=== PATIENT | female | born 1940 | race Two or more races ===

== ENCOUNTER 2018-04-12 12:41 | Emergency (ER) | payer MEDICARE, OTHER ==
[2018-04-12 12:52] VITALS: BP 125/81; PULSE 108; RESP 20; TEMP 98.2
[2018-04-12] MEDS ORDERED: KETOROLAC 30 MG/ML 1 ML VIAL IVP STA (14:04)
--- NOTE | 2018-04-12 14:06 | ED ---
General Adult HPI - General Chief complaint: Skin/Abscess/Foreign Body Stated complaint: lt sided chest/side pain, rash Time Seen by Provider: 04/12/18 13:00 Source: patient, RN notes reviewed Mode of arrival: ambulatory Limitations: no limitations - History of Present Illness Initial comments: This is a 78-year-old female who presents emergency Department complaining of left-sided flank pain and left-sided chest pain. Patient states it started 7 days ago. Patient states been constant for 7 days. Patient went to see the primary medical care doctor on Wednesday and since then the pain is continued. Patient states the rash broke out yesterday. Patient denies any difficulty breathing or shortness of breath. Patient denies any diaphoretic episodes. Patient denies any nausea. Patient denies abdominal pain other than with rashes. Patient denies any headache patient denies numbness weakness. Patient denies any lightheadedness dizziness or near-syncopal episode. - Related Data Home Medications Medication Instructions Recorded Confirmed Glimepiride [Amaryl] 2 mg PO [id number] 04/12/18 04/12/18 Ibuprofen [Motrin] 600 mg PO Q6H PRN 04/12/18 04/12/18 Lisinopril-Hctz 20-12.5 mg 1 tab PO DAILY 04/12/18 04/12/18 [Zestoretic 20-12.5] Simvastatin [Zocor] 20 mg PO HS 04/12/18 04/12/18 Previous Rx's Medication Instructions Recorded valACYclovir HCL [Valacyclovir] 1,000 mg PO Q8H 7 Days tab 04/12/18 Allergies Allergy/AdvReac Type Severity Reaction Status Date / Time No Known Allergies Allergy Verified 04/12/18 14:19 Review of Systems ROS Statement: Those systems with pertinent positive or pertinent negative responses have been documented in the HPI. ROS Other: All systems not noted in ROS Statement are negative. Past Medical History Past Medical History: Diabetes Mellitus, Hyperlipidemia, Hypertension History of Any Multi-Drug Resistant Organisms: None Reported Additional Past Surgical History / Comment(s): skin cancer removal Past Psychological History: No Psychological Hx Reported Smoking Status: Never smoker Past Alcohol Use History: None Reported Past Drug Use History: None Reported General Exam - General Exam Comments Initial Comments: GENERAL: Patient is well-developed and well-nourished. Patient is nontoxic and well- hydrated and is in mild distress. ENT: Neck is soft and supple. No significant lymphadenopathy is noted. Oropharynx is clear. Moist mucous membranes. Neck has full range of motion without eliciting any pain. EYES: The sclera were anicteric and conjunctiva were pink and moist. Extraocular movements were intact and pupils were equal round and reactive to light. Eyelids were unremarkable. PULMONARY: Unlabored respirations. Good breath sounds bilaterally. No audible rales rhonchi or wheezing was noted. CARDIOVASCULAR: There is a regular rate and rhythm without any murmurs gallops or rubs. ABDOMEN: Soft and nontender with normal bowel sounds. No palpable organomegaly was noted. There is no palpable pulsatile mass. SKIN: There is a classic shingles type rash. Left flank to the anterior abdomen. NEUROLOGIC: Patient is alert and oriented x3. Cranial nerves II through XII are grossly intact. Motor and sensory are also intact. Normal speech, volume and content. Symmetrical smile. MUSCULOSKELETAL: Normal extremities with adequate strength and full range of motion. LYMPHATICS: No significant lymphadenopathy is noted PSYCHIATRIC: Normal psychiatric evaluation. Limitations: no limitations Course Vital Signs 04/12/18 12:47 Temperature 98.2 F Pulse Rate 108 H Respiratory 20 Rate Blood Pressure 125/81 O2 Sat by Pulse 96 Oximetry Medical Decision Making - Medical Decision Making EKG shows normal sinus rhythm at 95 bpm LA interval is 212 QRS is under QT interval 380 QTC is 477. Patient's EKG shows no ST segment elevation or depression or T wave abnormalities are noted. 2. Chest shows no acute normalities. Patient was given valacyclovir emergency department will be sent home with similar. - Lab Data Result diagrams: 04/12/18 14:30 04/12/18 14:30 Lab Results 04/12/18 04/12/18 04/12/18 Range/Units 14:30 14:30 14:30 WBC 3.8 (3.8-10.6) k/uL RBC 4.22 (3.80-5.40) m/uL Hgb 13.4 (11.4-16.0) gm/dL Hct 40.9 (34.0-46.0) % MCV 96.7 (80.0-100.0) fL MCH 31.8 (25.0-35.0) pg MCHC 32.9 (31.0-37.0) g/dL RDW 12.3 (11.5-15.5) % Plt Count 167 (150-450) k/uL Neutrophils % 56 % Lymphocytes % 27 % Monocytes % 8 % Eosinophils % 1 % Basophils % 1 % Neutrophils # 2.2 (1.3-7.7) k/uL Lymphocytes # 1.1 (1.0-4.8) k/uL Monocytes # 0.3 (0-1.0) k/uL Eosinophils # 0.1 (0-0.7) k/uL Basophils # 0.0 (0-0.2) k/uL PT (9.0-12.0) sec INR (<1.2) APTT (22.0-30.0) sec Sodium 135 L (137-145) mmol/L Potassium 4.3 (3.5-5.1) mmol/L Chloride 96 L (98-107) mmol/L Carbon Dioxide 28 (22-30) mmol/L Anion Gap 11 mmol/L BUN 21 H (7-17) mg/dL Creatinine 1.10 H (0.52-1.04) mg/dL Est GFR (CKD-EPI)AfAm 56 (>60 ml/min/1.73 sqM) Est GFR (CKD-EPI)NonAf 49 (>60 ml/min/1.73 sqM) Glucose 126 H (74-99) mg/dL Calcium 9.9 (8.4-10.2) mg/dL Magnesium 1.8 (1.6-2.3) mg/dL Total Bilirubin 0.5 (0.2-1.3) mg/dL AST 38 H (14-36) U/L ALT 35 (9-52) U/L Alkaline Phosphatase 52 (38-126) U/L Total Creatine Kinase 93 (30-135) U/L CK-MB (CK-2) 1.4 (0.0-2.4) ng/mL CK-MB (CK-2) Rel Index 1.5 Troponin I <0.012 (0.000-0.034) ng/mL Total Protein 8.5 H (6.3-8.2) g/dL Albumin 4.7 (3.5-5.0) g/dL 04/12/18 Range/Units 14:30 WBC (3.8-10.6) k/uL RBC (3.80-5.40) m/uL Hgb (11.4-16.0) gm/dL Hct (34.0-46.0) % MCV (80.0-100.0) fL MCH (25.0-35.0) pg MCHC (31.0-37.0) g/dL RDW (11.5-15.5) % Plt Count (150-450) k/uL Neutrophils % % Lymphocytes % % Monocytes % % Eosinophils % % Basophils % % Neutrophils # (1.3-7.7) k/uL Lymphocytes # (1.0-4.8) k/uL Monocytes # (0-1.0) k/uL Eosinophils # (0-0.7) k/uL Basophils # (0-0.2) k/uL PT 9.7 (9.0-12.0) sec INR 1.0 (<1.2) APTT 21.9 L (22.0-30.0) sec Sodium (137-145) mmol/L Potassium (3.5-5.1) mmol/L Chloride (98-107) mmol/L Carbon Dioxide (22-30) mmol/L Anion Gap mmol/L BUN (7-17) mg/dL Creatinine (0.52-1.04) mg/dL Est GFR (CKD-EPI)AfAm (>60 ml/min/1.73 sqM) Est GFR (CKD-EPI)NonAf (>60 ml/min/1.73 sqM) Glucose (74-99) mg/dL Calcium (8.4-10.2) mg/dL Magnesium (1.6-2.3) mg/dL Total Bilirubin (0.2-1.3) mg/dL AST (14-36) U/L ALT (9-52) U/L Alkaline Phosphatase (38-126) U/L Total Creatine Kinase (30-135) U/L CK-MB (CK-2) (0.0-2.4) ng/mL CK-MB (CK-2) Rel Index Troponin I (0.000-0.034) ng/mL Total Protein (6.3-8.2) g/dL Albumin (3.5-5.0) g/dL Disposition Clinical Impression: Herpes zoster Disposition: HOME SELF-CARE Condition: Good Instructions: Shingles (ED) Prescriptions: valACYclovir HCL [Valacyclovir] 1,000 mg PO Q8H 7 Days tab Is patient prescribed a controlled substance at d/c from ED?: No Referrals: Nonstaff,Physician [Primary Care Provider] - 1-2 days Time of Disposition: 15:53
[2018-04-12 15:00] LABS: Basophils % (A) 1 %; Eosinophils # (A) 0.1 k/uL (0-0.7); Eosinophils % (A) 1 %; HCT 40.9 % (34.0-46.0); HGB 13.4 gm/dL (11.4-16.0); Lymphocytes # (A) 1.1 k/uL (1.0-4.8); Lymphocytes % (A) 27 %; MCH 31.8 pg (25.0-35.0); MCHC 32.9 g/dL (31.0-37.0); MCV 96.7 fL (80.0-100.0); Monocytes # (A) 0.3 k/uL (0-1.0); Monocytes % (A) 8 %; Neutrophils # (A) 2.2 k/uL (1.3-7.7); Neutrophils % (A) 56 %; Platelet Count 167 k/uL (150-450); RBC 4.22 m/uL (3.80-5.40); RDW 12.3 % (11.5-15.5); WBC 3.8 k/uL (3.8-10.6)
[2018-04-12 15:05] LABS: Albumin 4.7 g/dL (3.5-5.0); Calcium 9.9 mg/dL (8.4-10.2); Magnesium 1.8 mg/dL (1.6-2.3); Potassium 4.3 mmol/L (3.5-5.1); Total Bilirubin 0.5 mg/dL (0.2-1.3); Total Protein 8.5 g/dL (6.3-8.2)
--- NOTE | 2018-04-12 15:09 | XR ---
EXAMINATION TYPE: XR chest 2V DATE OF EXAM: 04/12/2018 COMPARISON: Prior chest x-ray unavailable HISTORY: Chest pain TECHNIQUE: Frontal and lateral views of the chest are obtained. FINDINGS: There is no focal air space opacity, pleural effusion, or pneumothorax seen. The cardiac silhouette size is within normal limits. Calcification in the left upper lobe likely represents gra nuloma. Patient is rotated. There is eventration of the right hemidiaphragm. Aorta is dense. Degenera tive disc changes in the visualized spine. The osseous structures are intact. IMPRESSION: No acute cardiopulmonary process.
[2018-04-12 15:16] LABS: Partial Thromboplastin Time 21.9 sec (22.0-30.0); Prothrombin Time 9.7 sec (9.0-12.0)
[2018-04-12 15:17] LABS: Creatine Kinase 93 U/L (30-135)
[2018-04-12 15:30] LABS: Creatine Kinase MB 1.4 ng/mL (0.0-2.4); Troponin I <0.012 ng/mL (0.000-0.034)
[2018-04-12] MEDS ORDERED: valACYclovir 500 MG TAB PO STA (15:52)
[2018-04-12 16:17] LABS: Appearance,Urine Cloudy (Clear); Bacteria,Urine Occasional /hpf; Bilirubin,Urine Negative (Negative); Blood,Urine Negative (Negative); Color,Urine Light Yellow; Glucose,Urine (UA) Negative (Negative); Hyaline Casts,Urine 3 /lpf (0-2); Ketones,Urine Negative (Negative); Leukocyte Esterase,Urine Moderate (Negative); Mucus,Urine Rare /hpf; Nitrite,Urine Negative (Negative); Protein,Urine Negative (Negative); RBC,Urine 1 /hpf (0-5); Specific Gravity,Urine 1.011 (1.001-1.035); Squamous Epithelial Cell,Urine <1 /hpf (0-4); Urobilinogen,Urine <2.0 mg/dL (<2.0); WBC,Urine 22 /hpf (0-5)
== END 2018-04-12 16:34 | disposition home or self-care (01) ==
LOC: EC 12:41
DX: B02.9 Zoster without complications (principal); R07.9 Chest pain, unspecified; R10.9 Unspecified abdominal pain; E11.9 Type 2 diabetes mellitus without complications; E78.5 Hyperlipidemia, unspecified; I10 Essential (primary) hypertension; Z85.828 Personal history of other malignant neoplasm of skin; Z79.84 Long term (current) use of oral hypoglycemic drugs; Z79.899 Other long term (current) drug therapy
CPT/HCPCS: 36415; 93005; 80053; 82550; 82553; 83735; 84484; 85025; 85610; 85730; 81001; 71046; 99285; 96374; J1885

== ENCOUNTER → 2018-11-05 | Outpatient (CLI) | payer MEDICARE, OTHER ==
--- NOTE | 2018-11-05 18:42 | MR ---
EXAMINATION TYPE: MR knee RT wo con DATE OF EXAM: 11/05/2018 COMPARISON: None HISTORY: Meniscus tear / Pain Rt knee TECHNIQUE: Multiplanar, multisequence imaging of the right knee is performed without IV contrast. FINDINGS: The anterior and posterior cruciate ligaments show no complete tear. There is a small focus of increa sed signal in the anterior cruciate ligament near the attachment on the tibia consistent with a parti al tear. Posterior cruciate ligament is intact. There is a moderate sized knee joint effusion. The lateral meniscus appears intact. There is narrowing of the medial joint space with significant thinning of the medial meniscus. There could be previous meniscal surgery. The collateral ligaments are intact. I see no focal bone destruction. There is no evidence of a fract ure. Patella is intact. IMPRESSION: Moderate size knee joint effusion. Extensive abnormality of the medial meniscus could reflect previou s surgery. If this patient has had no surgery then there is significant degenerative change and compl ex multiple tears of the medial meniscus. Moderate narrowing of the medial joint space. No fracture. Partial tear of the anterior cruciate ligament.
== END | disposition home or self-care (01) ==
LOC: RADMRIMAIN 13:47
PROVIDERS: ATTEND Orthopaedic Surgery
DX: S83.511A Sprain of anterior cruciate ligament of right knee, initial encounter (principal); M25.861 Other specified joint disorders, right knee

== ENCOUNTER 2019-05-15 18:26 | Observation (INO) | payer MEDICARE, OTHER ==
--- NOTE | 2019-05-15 19:00 | ED ---
General Adult HPI - General Chief complaint: Chest Pain Stated complaint: chest pain, UTI Time Seen by Provider: 05/15/19 18:30 Source: patient Mode of arrival: ambulatory Limitations: no limitations - History of Present Illness Initial comments: The patient is a 79-year-old female who presents to the emergency room and accompanied by her daughter. The patient is hard of hearing and is mildly confused therefore daughter provides the history. She states that her mother recently moved to the area so that way she could be closer to her and she could assist with her care. She reports that she does have some issues with memory which have acutely gotten worse twice in the past due to urinary tract infections. Daughter reports that since Wednesday the patient has had more confusion with hallucinations. She had thoughts that someone was in her apart ment and therefore hid her money. She has been very forgetful and has had some confused speech. She was going to take her into the doctor's for evaluation of urinary tract infection. The patient began complaining of chest pain over the left side of her chest and this is what prompted the daughter to bring her in sooner. She states that she lives in an independent facility. The patient denies hitting her head however daughter is not convinced of this. Denies any recent medication changes. She is also complaining of some belly pain and had an episode of vomiting on Wednesday. No fevers or chills. Patient denies any shortness of breath. No cardiac history. Denies any current abdominal pain. Does report black stools. No history of GI bleeding. Denies dysuria, hematuria or difficulty voiding. Denies a psychiatric history. Remainder of the HPI is limited because the patient's current state - Related Data Home Medications Medication Instructions Recorded Confirmed Aspirin EC [Ecotrin Low Dose] 81 mg PO DAILY 05/15/19 05/15/19 Previous Rx's Medication Instructions Recorded ALPRAZolam [Xanax] 0.25 mg PO BID PRN 7 Days #15 tab 05/17/19 Donepezil [Aricept] 5 mg PO HS #30 tab 05/17/19 Losartan Potassium [Cozaar] 100 mg PO DAILY #30 tab 05/17/19 Allergies Allergy/AdvReac Type Severity Reaction Status Date / Time No Known Allergies Allergy Verified 05/15/19 20:44 Review of Systems ROS Statement: Those systems with pertinent positive or pertinent negative responses have been documented in the HPI. ROS Other: All systems not noted in ROS Statement are negative. Past Medical History Past Medical History: Diabetes Mellitus, Hyperlipidemia, Hypertension History of Any Multi-Drug Resistant Organisms: None Reported Additional Past Surgical History / Comment(s): skin cancer removal Past Psychological History: No Psychological Hx Reported Smoking Status: Never smoker Past Alcohol Use History: None Reported Past Drug Use History: None Reported - Past Family History Family Family Medical History: No Reported History General Exam Limitations: no limitations General appearance: alert, in no apparent distress Head exam: Present: atraumatic, normocephalic, normal inspection Eye exam: Present: normal appearance, PERRL, EOMI. Absent: scleral icterus, conjunctival injection, periorbital swelling ENT exam: Present: normal exam, mucous membranes moist Neck exam: Present: normal inspection. Absent: tenderness, meningismus, lymphadenopathy Respiratory exam: Present: normal lung sounds bilaterally. Absent: respiratory distress, wheezes, rales, rhonchi, stridor Cardiovascular Exam: Present: regular rate, normal rhythm, normal heart sounds. Absent: systolic murmur, diastolic murmur, rubs, gallop, clicks GI/Abdominal exam: Present: soft, normal bowel sounds. Absent: distended, tenderness, guarding, rebound, rigid Extremities exam: Present: normal inspection, full ROM, normal capillary refill. Absent: tenderness, pedal edema, joint swelling, calf tenderness Back exam: Present: normal inspection Neurological exam: Present: alert, CN II-XII intact Psychiatric exam: Present: normal affect, normal mood Skin exam: Present: warm, dry, intact, normal color. Absent: rash Course Vital Signs 05/15/19 05/15/19 05/15/19 18:28 18:54 19:00 Temperature 97.9 F Pulse Rate 65 Pulse Rate [ 61 Right Pulse Oximetery] Respiratory 18 18 Rate Blood Pressure 176/83 O2 Sat by Pulse 99 Oximetry 05/15/19 05/15/19 05/15/19 19:22 19:54 21:00 Temperature 98.8 F 98.7 F 98.8 F Pulse Rate 68 62 71 Pulse Rate [ Right Pulse Oximetery] Respiratory 17 18 15 Rate Blood Pressure 188/94 167/84 170/85 O2 Sat by Pulse 98 99 100 Oximetry EKG Findings - EKG Comments: EKG Findings:: EKG demonstrates a sinus rhythm with a first-degree AV block. Rate of 62. LA interval 228. QRS 106. QTC of 454. No acute ST segment elevations or depressions concerning for ischemic changes. Baseline artifact. Medical Decision Making - Medical Decision Making Upon arrival the patient was placed into room 1. A thorough history and physical exam was performed. A 12-lead EKG was performed which demonstrates no acute findings. Peripheral IV is established. I did recommend laboratory studies which were grossly unremarkable. Sodium is 130 with a chloride of 90. Troponin is negative. Salicylate 4.5. Fecal occult is negative. CT the patient's brain demonstrates cerebral atrophy and chronic small vessel ischemia. No acute intracranial abnormality. Chest x-ray demonstrates no active cardiopulmonary disease. Urinalysis is clear. He did results with the patient and her doctor at bedside. As the patient does live alone and is suffering from acute confusion I did recommend hospital admission. I discussed the case with Dr. Andrade who accepted admission for the patient. I will place neurology on consult. The patient remained in stable condition and was transported to the floor - Lab Data Result diagrams: 05/17/19 05:58 05/17/19 05:58 Lab Results 05/15/19 05/15/19 05/15/19 Range/Units 18:50 18:53 18:53 WBC 4.5 (3.8-10.6) k/uL RBC 4.30 (3.80-5.40) m/uL Hgb 14.0 (11.4-16.0) gm/dL Hct 39.8 (34.0-46.0) % MCV 92.7 (80.0-100.0) fL MCH 32.5 (25.0-35.0) pg MCHC 35.1 (31.0-37.0) g/dL RDW 12.1 (11.5-15.5) % Plt Count 211 (150-450) k/uL Neutrophils % (Manual) 36 % Lymphocytes % (Manual) 57 % Monocytes % (Manual) 4 % Eosinophils % (Manual) 2 % Basophils % (Manual) 1 % Neutrophils # (Manual) 1.62 (1.3-7.7) k/uL Lymphocytes # (Manual) 2.57 (1.0-4.8) k/uL Monocytes # (Manual) 0.18 (0-1.0) k/uL Eosinophils # (Manual) 0.09 (0-0.7) k/uL Basophils # (Manual) 0.05 (0-0.2) k/uL Nucleated RBCs 0 (0-0) /100 WBC Manual Slide Review Performed RBC Morphology Normal PT (9.0-12.0) sec INR (<1.2) APTT (22.0-30.0) sec Sodium (137-145) mmol/L Potassium (3.5-5.1) mmol/L Chloride (98-107) mmol/L Carbon Dioxide (22-30) mmol/L Anion Gap mmol/L BUN (7-17) mg/dL Creatinine (0.52-1.04) mg/dL Est GFR (CKD-EPI)AfAm (>60 ml/min/1.73 sqM) Est GFR (CKD-EPI)NonAf (>60 ml/min/1.73 sqM) Glucose (74-99) mg/dL POC Glucose (mg/dL) (75-99) mg/dL POC Glu Staple Cutter ID Calcium (8.4-10.2) mg/dL Total Bilirubin (0.2-1.3) mg/dL AST (14-36) U/L ALT (4-34) U/L Alkaline Phosphatase (38-126) U/L Ammonia <9 (<30) umol/L Creatine Kinase (30-135) U/L Troponin I (0.000-0.034) ng/mL Total Protein (6.3-8.2) g/dL Albumin (3.5-5.0) g/dL TSH (0.465-4.680) mIU/L Urine Color Light Yellow Urine Appearance Clear (Clear) Urine pH 7.0 (5.0-8.0) Ur Specific [place] 1.007 (1.001-1.035) Urine Protein Negative (Negative) Urine Glucose (UA) Negative (Negative) Urine Ketones Negative (Negative) Urine Blood Negative (Negative) Urine Nitrite Negative (Negative) Urine Bilirubin Negative (Negative) Urine Urobilinogen <2.0 (<2.0) mg/dL Ur Leukocyte Esterase Negative (Negative) Stool Occult Blood (Negative) Salicylates mg/dL Urine Opiates Screen Not Detected (NotDetected) Ur Oxycodone Screen Not Detected (NotDetected) Urine Methadone Screen Not Detected (NotDetected) Ur Propoxyphene Screen Not Detected (NotDetected) Acetaminophen ug/mL Ur Barbiturates Screen Not Detected (NotDetected) U Tricyclic Antidepress Not Detected (NotDetected) Ur Phencyclidine Scrn Not Detected (NotDetected) Ur Amphetamines Screen Not Detected (NotDetected) U Methamphetamines Scrn Not Detected (NotDetected) U Benzodiazepines Scrn Not Detected (NotDetected) Urine Cocaine Screen Not Detected (NotDetected) U Marijuana (THC) Screen Not Detected (NotDetected) 05/15/19 05/15/19 05/15/19 Range/Units 18:53 18:53 18:53 WBC (3.8-10.6) k/uL RBC (3.80-5.40) m/uL Hgb (11.4-16.0) gm/dL Hct (34.0-46.0) % MCV (80.0-100.0) fL MCH (25.0-35.0) pg MCHC (31.0-37.0) g/dL RDW (11.5-15.5) % Plt Count (150-450) k/uL Neutrophils % (Manual) % Lymphocytes % (Manual) % Monocytes % (Manual) % Eosinophils % (Manual) % Basophils % (Manual) % Neutrophils # (Manual) (1.3-7.7) k/uL Lymphocytes # (Manual) (1.0-4.8) k/uL Monocytes # (Manual) (0-1.0) k/uL Eosinophils # (Manual) (0-0.7) k/uL Basophils # (Manual) (0-0.2) k/uL Nucleated RBCs (0-0) /100 WBC Manual Slide Review RBC Morphology PT 9.8 (9.0-12.0) sec INR 0.9 (<1.2) APTT 22.6 (22.0-30.0) sec Sodium 130 L (137-145) mmol/L Potassium 4.0 (3.5-5.1) mmol/L Chloride 90 L (98-107) mmol/L Carbon Dioxide 28 (22-30) mmol/L Anion Gap 12 mmol/L BUN 15 (7-17) mg/dL Creatinine 0.74 (0.52-1.04) mg/dL Est GFR (CKD-EPI)AfAm >90 (>60 ml/min/1.73 sqM) Est GFR (CKD-EPI)NonAf 78 (>60 ml/min/1.73 sqM) Glucose 124 H (74-99) mg/dL POC Glucose (mg/dL) (75-99) mg/dL POC Glu Staple Cutter ID Calcium 9.7 (8.4-10.2) mg/dL Total Bilirubin 0.5 (0.2-1.3) mg/dL AST 26 (14-36) U/L ALT 22 (4-34) U/L Alkaline Phosphatase 59 (38-126) U/L Ammonia (<30) umol/L Creatine Kinase 60 (30-135) U/L Troponin I <0.012 (0.000-0.034) ng/mL Total Protein 8.2 (6.3-8.2) g/dL Albumin 4.7 (3.5-5.0) g/dL TSH 0.894 (0.465-4.680) mIU/L Urine Color Urine Appearance (Clear) Urine pH (5.0-8.0) Ur Specific [place] (1.001-1.035) Urine Protein (Negative) Urine Glucose (UA) (Negative) Urine Ketones (Negative) Urine Blood (Negative) Urine Nitrite (Negative) Urine Bilirubin (Negative) Urine Urobilinogen (<2.0) mg/dL Ur Leukocyte Esterase (Negative) Stool Occult Blood (Negative) Salicylates 4.5 mg/dL Urine Opiates Screen (NotDetected) Ur Oxycodone Screen (NotDetected) Urine Methadone Screen (NotDetected) Ur Propoxyphene Screen (NotDetected) Acetaminophen <10.0 ug/mL Ur Barbiturates Screen (NotDetected) U Tricyclic Antidepress (NotDetected) Ur Phencyclidine Scrn (NotDetected) Ur Amphetamines Screen (NotDetected) U Methamphetamines Scrn (NotDetected) U Benzodiazepines Scrn (NotDetected) Urine Cocaine Screen (NotDetected) U Marijuana (THC) Screen (NotDetected) 05/15/19 05/15/19 Range/Units 19:00 19:15 WBC (3.8-10.6) k/uL RBC (3.80-5.40) m/uL Hgb (11.4-16.0) gm/dL Hct (34.0-46.0) % MCV (80.0-100.0) fL MCH (25.0-35.0) pg MCHC (31.0-37.0) g/dL RDW (11.5-15.5) % Plt Count (150-450) k/uL Neutrophils % (Manual) % Lymphocytes % (Manual) % Monocytes % (Manual) % Eosinophils % (Manual) % Basophils % (Manual) % Neutrophils # (Manual) (1.3-7.7) k/uL Lymphocytes # (Manual) (1.0-4.8) k/uL Monocytes # (Manual) (0-1.0) k/uL Eosinophils # (Manual) (0-0.7) k/uL Basophils # (Manual) (0-0.2) k/uL Nucleated RBCs (0-0) /100 WBC Manual Slide Review RBC Morphology PT (9.0-12.0) sec INR (<1.2) APTT (22.0-30.0) sec Sodium (137-145) mmol/L Potassium (3.5-5.1) mmol/L Chloride (98-107) mmol/L Carbon Dioxide (22-30) mmol/L Anion Gap mmol/L BUN (7-17) mg/dL Creatinine (0.52-1.04) mg/dL Est GFR (CKD-EPI)AfAm (>60 ml/min/1.73 sqM) Est GFR (CKD-EPI)NonAf (>60 ml/min/1.73 sqM) Glucose (74-99) mg/dL POC Glucose (mg/dL) 115 H (75-99) mg/dL POC Glu Staple Cutter ID [place] Calcium (8.4-10.2) mg/dL Total Bilirubin (0.2-1.3) mg/dL AST (14-36) U/L ALT (4-34) U/L Alkaline Phosphatase (38-126) U/L Ammonia (<30) umol/L Creatine Kinase (30-135) U/L Troponin I (0.000-0.034) ng/mL Total Protein (6.3-8.2) g/dL Albumin (3.5-5.0) g/dL TSH (0.465-4.680) mIU/L Urine Color Urine Appearance (Clear) Urine pH (5.0-8.0) Ur Specific [place]mer (1.001-1.035) Urine Protein (Negative) Urine Glucose (UA) (Negative) Urine Ketones (Negative) Urine Blood (Negative) Urine Nitrite (Negative) Urine Bilirubin (Negative) Urine Urobilinogen (<2.0) mg/dL Ur Leukocyte Esterase (Negative) Stool Occult Blood Negative (Negative) Salicylates mg/dL Urine Opiates Screen (NotDetected) Ur Oxycodone Screen (NotDetected) Urine Methadone Screen (NotDetected) Ur Propoxyphene Screen (NotDetected) Acetaminophen ug/mL Ur Barbiturates Screen (NotDetected) U Tricyclic Antidepress (NotDetected) Ur Phencyclidine Scrn (NotDetected) Ur Amphetamines Screen (NotDetected) U Methamphetamines Scrn (NotDetected) U Benzodiazepines Scrn (NotDetected) Urine Cocaine Screen (NotDetected) U Marijuana (THC) Screen (NotDetected) Disposition Clinical Impression: Chest pain, Acute encephalopathy Disposition: [facility] Condition: Stable Is patient prescribed a controlled substance at d/c from ED?: No Decision to Admit Reason: Admit from EC Decision Date: 05/15/19 Decision Time: 20:55
[2019-05-15 19:17] LABS: Glucose,Whole Blood 115 mg/dL (75-99)
[2019-05-15 19:37] LABS: INR 0.9 (<1.2); Partial Thromboplastin Time 22.6 sec (22.0-30.0); Prothrombin Time 9.8 sec (9.0-12.0)
[2019-05-15 19:38] LABS: Appearance,Urine Clear (Clear); Bilirubin,Urine Negative (Negative); Blood,Urine Negative (Negative); Color,Urine Light Yellow; Glucose,Urine (UA) Negative (Negative); Ketones,Urine Negative (Negative); Leukocyte Esterase,Urine Negative (Negative); Nitrite,Urine Negative (Negative); Protein,Urine Negative (Negative); Specific Gravity,Urine 1.007 (1.001-1.035); Urobilinogen,Urine <2.0 mg/dL (<2.0)
--- NOTE | 2019-05-15 19:39 | CT ---
EXAMINATION TYPE: CT brain wo con DATE OF EXAM: 05/15/2019 COMPARISON: None HISTORY: confusion, ams CT DLP: 1095.4 mGycm Automated exposure control for dose reduction was used. There is cerebral cortical atrophy. There is no mass effect nor midline shift. There is no sign of in tracranial hemorrhage. Calvarium is intact. There is mild hypodensity in the periventricular white ma tter. Skull base is intact. There is incomplete pneumatization of the mastoid sinuses. IMPRESSION: Cerebral atrophy and chronic small vessel ischemia. No acute intracranial abnormality. 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
[2019-05-15 19:40] LABS: ALT 22 U/L (4-34); AST 26 U/L (14-36); Acetaminophen <10.0 ug/mL; African American GFR (CKD) >90 (>60 ml/min/1.73 sqM); Albumin 4.7 g/dL (3.5-5.0); Alkaline Phosphatase 59 U/L (38-126); Anion Gap 12 mmol/L; Blood Urea Nitrogen 15 mg/dL (7-17); Calcium 9.7 mg/dL (8.4-10.2); Carbon Dioxide 28 mmol/L (22-30); Chloride 90 mmol/L (98-107); Creatine Kinase 60 U/L (30-135); Glucose 124 mg/dL (74-99); Non-African American GFR(CKD) 78 (>60 ml/min/1.73 sqM); Salicylate 4.5 mg/dL; Sodium 130 mmol/L (137-145); Total Bilirubin 0.5 mg/dL (0.2-1.3); Total Protein 8.2 g/dL (6.3-8.2)
--- NOTE | 2019-05-15 19:40 | XR ---
EXAMINATION TYPE: XR chest 2V DATE OF EXAM: 05/15/2019 COMPARISON: 04/12/2018 HISTORY: Altered mental status TECHNIQUE: 2 views FINDINGS: There is no heart failure nor confluent pneumonic infiltrate. Costophrenic angles are clear . Facet aorta is atheromatous. There are chest leads. Diaphragm is normal. There is osteopenia. IMPRESSION: No active cardiopulmonary disease. Normal heart. No change.
[2019-05-15 19:49] LABS: Amphetamine Screen,Urine Not Detected (NotDetected); Barbiturate Screen,Urine Not Detected (NotDetected); Benzodiazepines Screen,Urine Not Detected (NotDetected); Cocaine Screen,Urine Not Detected (NotDetected); Methadone Screen, Urine Not Detected (NotDetected); Opiate Screen,Urine Not Detected (NotDetected); Oxycodone Screen, Urine Not Detected (NotDetected); Phencyclidine Screen,Urine Not Detected (NotDetected); Tricyclic Antidepressant,Urine Not Detected (NotDetected); Urn Cannabinoid Scrn Not Detected (NotDetected)
[2019-05-15 19:57] LABS: HCT 39.8 % (34.0-46.0); MCH 32.5 pg (25.0-35.0); MCHC 35.1 g/dL (31.0-37.0); MCV 92.7 fL (80.0-100.0); Mean Platelet Volume 7.3; Platelet Count 211 k/uL (150-450); RDW 12.1 % (11.5-15.5); WBC 4.5 k/uL (3.8-10.6)
[2019-05-15 20:43] LABS: Basophils # (M) 0.05 k/uL (0-0.2); Eosinophils # (M) 0.09 k/uL (0-0.7); Lymphocytes # (M) 2.57 k/uL (1.0-4.8); Monocytes # (M) 0.18 k/uL (0-1.0); Neutrophils # (M) 1.62 k/uL (1.3-7.7); Neutrophils % (M) 36 %; Nucleated Red Blood Cells 0 /100 WBC (0-0); Total Cells Counted 100
[2019-05-15] MEDS ORDERED: NALOXONE 0.4 MG/ML 1 ML VIAL IV PRN (20:55)
[2019-05-15] MEDS: ACETAMINOPHEN TAB 325 MG TAB PO PRN (21:21)
--- NOTE | 2019-05-15 21:50 | P.HPIM ---
History of Present Illness H&P Date: 05/15/19 Chief Complaint: Confusion 79-year-old female with history of hypertension Patient comes in today with her daughter. She lives at independent assisted living she recently sold her house. Daughter reports episodes of confusion the last few days at a time and then she goes back to her baseline last time she had that episode she was found to have UTI so the daughter brought her in today to rule out UTI. Patient was reporting seeing people and also reporting missing money. At her baseline she is able to take care of herself with activities of daily living however she needs assistance with financing and banking. She is an active woman and not limited by any exertional dyspnea or chest pain. She never had any cardiac issues in the past. However she gets these episodes where she becomes confused at the she thinks that she seeing people and sometimes blames her daughter that she is hiding money from her. These episodes usually last anywhere between 1 day to 4 days. And then resolves on its own that's becoming more frequent. Patient daughter also noticed memory issues. Patient otherwise denies any focal neurologic deficits at this time. She reports a result occlusion of her symptoms at this point. Patient also reported vague chest pain this currently resolved with nitro. However she denies any exertional dyspnea she describes the pain as central evin st not radiating that associated with any shortness of breath dizziness lightheadedness palpitations nausea or vomiting. She never experienced anything like this before this started suddenly. I resolved in the ER initial workup in the ER was negative including metabolic workup and CT of the brain. Patient admitted for neurologic evaluation and further monitoring overnight She otherwise feels fine at this point denies any chest pain or trouble breathing denies abdominal pain nausea vomiting changes in her bowel or urinary habits. Has any focal neuro deficits Review of Systems Pertinent positives as noted in HPI. All other systems were reviewed and are negative Past Medical History Past Medical History: Diabetes Mellitus, Hyperlipidemia, Hypertension History of Any Multi-Drug Resistant Organisms: None Reported Additional Past Surgical History / Comment(s): skin cancer removal Past Psychological History: No Psychological Hx Reported Smoking Status: Never smoker Past Alcohol Use History: None Reported Past Drug Use History: None Reported - Past Family History Family Family Medical History: No Reported History Medications and Allergies Home Medications Medication Instructions Recorded Confirmed Type Aspirin EC [Ecotrin Low Dose] 81 mg PO DAILY 05/15/19 05/15/19 History Losartan Potassium 50 mg PO DAILY 05/15/19 05/15/19 History Allergies Allergy/AdvReac Type Severity Reaction Status Date / Time No Known Allergies Allergy Verified 05/15/19 20:44 Physical Exam Vitals: Vital Signs Temp Pulse Pulse Resp BP Pulse Ox 05/15/19 21:00 98.8 F 71 15 170/85 100 05/15/19 19:54 98.7 F 62 18 167/84 99 05/15/19 19:22 98.8 F 68 17 188/94 98 05/15/19 19:00 18 05/15/19 18:54 61 05/15/19 18:28 97.9 F 65 18 176/83 99 Intake and Output 05/15/19 05/15/19 05/15/19 06:59 14:59 22:59 Other: Weight 54.431 kg Constitutional: No acute distress, conversant, pleasant Eyes: Anicteric sclerae, moist conjunctiva, no lid-lag Pupils equal round reactive to light ENMT: NC/AT Oropharynx clear, no erythema, exudates Neck: Supple, FROM, no masses, or JVD No carotid bruits No thyromegaly Lungs: Clear to auscultation Clear to percussion Normal respiratory effort, no accessory muscle use Cardiovascular: Heart regular in rate and rhythm, No murmurs, gallops, or rubs No peripheral edema Abdominal: Soft Nontender, no guarding, rebound or rigidity Abdomen moving with respiration Normoactive bowel sounds No hepatomegaly, No splenomegaly No palpable mass No abdominal wall hernia noted Skin: Normal temperature, tone, texture, turgor No induration No subcutaneous nodules No rash, lesions No ulcers Extremities: No digital cyanosis No clubbing Pedal pulses intact and symmetrical Radial pulses intact and slightly asymmetrical No calf tenderness Psychiatric: Alert and oriented to person, place not oriented to time Appropriate affect fair judgment Neuro Muscles Strength 5/5 in all 4 extremities Sensation to light touch grossly present throughout Cranial nerves II-XII grossly intact No focal sensory deficits Lymphatics: no palpable cervical or supraclavicular , or inguinal lymph nodes Results CBC & Chem 7: 05/15/19 18:53 05/15/19 18:53 Labs: Abnormal Lab Results - Last 24 Hours (Table) 05/15/19 05/15/19 Range/Units 18:53 19:15 Sodium 130 L (137-145) mmol/L Chloride 90 L (98-107) mmol/L Glucose 124 H (74-99) mg/dL POC Glucose (mg/dL) 115 H (75-99) mg/dL Assessment and Plan Assessment: 79-year-old female with history of hypertension comes in today due to confusion over the past few days. Daughter accompanies the patient reports off-and-on confusion episodes last time she had that she was found to have UTI for which she was in the hospital. Extensive workup done in the ER no acute pathology identified. Patient also reported chest pain. She is admitted for further monitoring and neurologic evaluation Plan: acute encephalopathy , improving Metabolic workup in the ER was unremarkable CT of the brain was negative for any acute pathology Continue with neuro evaluation Neurochecks Neurology consultation Monitor vital signs Full precautions Consider MRI of the brain rule out any vascular insults Hypertension, accelerated Asymptomatic Resume home meds tomorrow Allow for permissive hypertension today Mild cognitive impairment with memory loss Patient has episodes of confusion that resolves and goes back to baseline Patient lives alone at independent living facility Surrogate decision-maker: Patient daughter CODE STATUS: Full code DVT prophylaxis: He can recall Discussed with: Patient, ER, RN Anticipated length of stay less than [address]: Pending clinical course A total of 60 minutes was spent on the care of this complex patient more than 50% of the time was spent in counseling and care coordination.
[2019-05-16] MEDS ORDERED: LOSARTAN 50 MG TAB PO SCH (09:00)
[2019-05-16] MEDS: ASPIRIN 81 MG PO SCH (10:03)
[2019-05-16] MEDS: ACETAMINOPHEN TAB 325 MG TAB PO PRN ×2 (10:03→16:03)
[2019-05-16 10:55] LABS: African American GFR (CKD) >90 (>60 ml/min/1.73 sqM); Anion Gap 9 mmol/L; Blood Urea Nitrogen 14 mg/dL (7-17); Calcium 9.7 mg/dL (8.4-10.2); Carbon Dioxide 25 mmol/L (22-30); Chloride 97 mmol/L (98-107); Glucose 119 mg/dL (74-99); Non-African American GFR(CKD) 86 (>60 ml/min/1.73 sqM); Potassium 4.4 mmol/L (3.5-5.1); Sodium 131 mmol/L (137-145)
[2019-05-16] MEDS ORDERED: DONEPEZIL 5 MG TAB PO SCH (16:45)
[2019-05-16] MEDS ORDERED: LOSARTAN 50 MG TAB PO STA (17:02)
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
--- NOTE | 2019-05-16 19:35 | P.CNNES ---
History of Present Illness Consult date: 05/16/19 Reason for Consult: AMS Chief complaint: AMS History of Present Illness: HISTORY OF PRESENT ILLNESS: Thank you for allowing me to evaluate Ms. Branden Chan. Ms. Chan is a 79 year-old woman with PMhx of diabetes, HTN, HLD, shingles, presented to [facility] for worsening mental status. Patient's daughter at bedside for corroborating information. 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 She had shingles at that time, and since then, patient's mental status became significantly worse but it did improve. Patient reports that patient had "senior moments" for a couple of years but it became more noticeable after her shingles. Patient moved to [place] in 11/2009 and recently moved in to an independent living facilty about 2 weeks ago. Patient recently had complained of abdominal pain and constipation (although patient's had issues with constipation for a long time), and because of that, patient had decreased oral intake. Family had been trying to make an appointment with a neurologist, but it's been very difficult. Patient with no other recent sickness, fever, cough, sneezing, diarrhea, nausea, vomiting. Denies double/blurry vision. Patient reporting some headache at this time, patient is a very poor historian and unable to determine pain severity. She just says, "bad headache, tylenol." I tried to speak to the patient in Yoruba, but patient's Yoruba is also limited as much as her Chadian is. Patient this morning underwent mini mental exam, and she scored 5 out of 30 points. PAST MEDICAL HISTORY: diabetes, HTN, HLD, shingles PAST SURGICAL HISTORY: none reported HOME MEDICATIONS: Losartan, Aspirin ALLERGIES: NKDA SOCIAL HISTORY: Never smoker REVIEW OF SYSTEMS: The 14 systems are reviewed and no additional points are identified compared to the review of systems documented history and physical PHYSICAL EXAMINATION: VITAL SIGNS: T 97.6 HR 69 RR 18 Bp 130/74 O2 sat 96% on RA GEN.: NAD, pleasant and cooperative HEENT: NCAT, sclera without icterus NECK: Supple SKIN AND EXTREMITIES: Warm to touch, no edema NEURO: MENTAL STATUS: Patient alert and oriented to self, place, time. Able to name the current president. Speech fluent, able to name and repeat, following all commands readily. No right and left disorientation, neglect. CRANIAL NERVES II THROUGH XII: II: Pupils are equal and reactive to light symmetrically. No afferent pupillary defect. Visual coto are intact. III, IV, : No ptosis. Extraocular movements full. No nystagmus. V: Facial sensation intact from V1-3. VII. No clear facial asymmetry. VIII: Hearing intact to finger rub bilaterally. IX, X: Symmetric palate elevation. XI: Shoulder shrug intact. XII: Tongue midline without fasciculation or atrophy. MOTOR: Normal bulk/tone. No pronator drift or tremor. Strength is 5/5 throughout all 4 extremities. SENSORY: Intact to light touch in all 4 extremities. Romberg is negative. REFLEXES: 2+ throughout. Toes are downgoing. COORDINATION: Finger to nose intact. No dysmetria. GAIT: Narrow-based and stable. Difficulty with walking on her toes due to pain on her R knee. Able to heel/tandem walk DIAGNOSTIC TESTING: LABORATORY: WBC 4.5 Hgb 14.0 Platelet 211 Na 130 K 4.0 Cl 90 CO2 28 BUN 15 Cr 0.74 Glucose 124 AST 26 ALT 22 AlkPhos 59 Toponin <0.012 TSH 0.894 ammonia <9 Urinalysis negative utox negative IMAGING: CT Head w/o contrast 05/15/19: Cerebral atrophy and chronic small vessel ischemia. No acute intracranial abnormality. ASSESSMENT: 79 year-old woman with PMhx of diabetes, HTN, HLD, shingles, presented to [facility] for worsening mental status. Patient with no focal deficits. Patient likely with dementia as patient has been having issues with her mental status for >1 year. Patient's daughter reported a step-down like changes in patient's mental status since about 1 year ago with no stroke-like events. Patient will get work-up for dementia as outpatient, but will obtain MRI brain w/o contrast while patient is admitted to the hospital. Patient's BP has been elevated, staying one more night for better BP management. RECOMMENDATIONS: 1. MRI brain w/o contrast 2. Donepezil 5mg qday 3. Neurology outpatient follow-up within 3-4 weeks of discharge. 4. If MRI brain w/o contrast negative, Neurology will sign off. Past Medical History Past Medical History: Diabetes Mellitus, Hyperlipidemia, Hypertension History of Any Multi-Drug Resistant Organisms: None Reported Additional Past Surgical History / Comment(s): skin cancer removal Past Anesthesia/Blood Transfusion Reactions: No Reported Reaction Past Psychological History: No Psychological Hx Reported Smoking Status: Never smoker Past Alcohol Use History: None Reported Past Drug Use History: None Reported - Past Family History Family Family Medical History: No Reported History Medications and Allergies Home Medications Medication Instructions Recorded Confirmed Type Aspirin EC [Ecotrin Low Dose] 81 mg PO DAILY 05/15/19 05/15/19 History Losartan Potassium 50 mg PO DAILY 05/15/19 05/15/19 History Allergies Allergy/AdvReac Type Severity Reaction Status Date / Time No Known Allergies Allergy Verified 05/15/19 20:44 Physical Examination - Vital Signs Vital Signs: Vital Signs Temp Pulse Pulse Resp BP BP Pulse Ox 05/16/19 08:00 97.6 F 69 130/74 96 05/16/19 03:24 64 18 05/16/19 03:23 97.9 F 64 18 129/72 93 L 05/15/19 23:59 61 16 05/15/19 23:56 98.0 F 61 16 132/71 98 05/15/19 22:13 172/83 05/15/19 21:35 97.8 F 67 18 194/90 96 05/15/19 21:00 98.8 F 71 15 170/85 100 05/15/19 19:54 98.7 F 62 18 167/84 99 05/15/19 19:22 98.8 F 68 17 188/94 98 05/15/19 19:00 18 05/15/19 18:54 61 05/15/19 18:28 97.9 F 65 18 176/83 99 Intake and Output 05/15/19 05/16/19 05/16/19 22:59 06:59 14:59 Intake Total 360 Balance 360 Intake: Oral 360 Other: Voiding Method Toilet # Voids 1 1 Weight 56.8 kg 56.7 kg Results - Laboratory Findings CBC and BMP: 05/15/19 18:53 05/16/19 06:14 Abnormal Lab Findings: Abnormal Labs 05/15/19 05/15/19 05/16/19 18:53 19:15 06:14 Sodium 130 L 131 L Chloride 90 L 97 L Glucose 124 H 119 H POC Glucose (mg/dL) 115 H
[2019-05-16] MEDS ORDERED: BISMUTH SUBSALICYLATE 4,192 MG/240 ML BOTTLE PO PRN (19:50)
--- NOTE | 2019-05-16 23:59 | EEG ---
ELECTROENCEPHALOGRAM REPORT DATE OF PROCEDURE: 05/16/2019 ELECTROENCEPHALOGRAM (EEG) REPORT: TECHNIQUE: A routine 18-channel EEG was performed with video using the 10/20 international electrode placement system. HISTORY: Episodes of confusion. CURRENT MEDICATIONS: Aspirin, Tylenol. OTHER MEDICAL HISTORY: Other medical history includes hypertension, diabetes, hyperlipidemia. STUDY DURATION: 20 minutes. FINDINGS: Please note that the patient was drowsy or asleep for the majority of this recording. During the occasional periods of maximal alertness, the background activity consisted of 8 to 9 Hz rhythmic waveforms symmetrically distributed over both posterior quadrants. ACTIVATION: Hyperventilation: Not performed. Photic stimulation: No driving seen. Sleep: Stages I and II sleep noted. ABNORMALITIES: None. IMPRESSION: Normal, predominantly sleep EEG. During the occasional periods of maximal alertness, no epileptiform activity was present. No clinical or electrographic seizures were recorded. MMMICHOACANO / TEJINDERN: [id number] / MTDD
[2019-05-17 06:16] LABS: HCT 41.4 % (34.0-46.0); MCH 31.7 pg (25.0-35.0); MCHC 33.9 g/dL (31.0-37.0); MCV 93.4 fL (80.0-100.0); Platelet Count 244 k/uL (150-450); RBC 4.43 m/uL (3.80-5.40); WBC 7.7 k/uL (3.8-10.6)
[2019-05-17 07:04] LABS: Erythrocyte Sedimentation Rate 15 mm/hr (0-20)
[2019-05-17 08:24] VITALS: RESP 20
[2019-05-17] MEDS: ASPIRIN 81 MG PO SCH (08:26)
[2019-05-17] MEDS ORDERED: LOSARTAN 50 MG TAB PO SCH (09:00)
[2019-05-17 10:15] LABS: Potassium 4.3 mmol/L (3.5-5.1)
--- NOTE | 2019-05-17 10:33 | MR ---
EXAMINATION TYPE: MR brain wo con DATE OF EXAM: 05/17/2019 COMPARISON: CT brain 2 days ago. HISTORY: Possible CVA, Dementia. Patient admitted for acute onset confusion 2 days earlier. TECHNIQUE: Multiplanar, multisequence imaging of the brain and brainstem is performed without IV cont rast. FINDINGS: Diffusion weighted images demonstrate no evidence of a recent infarct or other diffusion abnormality. There is no worrisome extra-axial fluid. There is diffuse ventricular and sulcal prominence more prom inent over the bilateral frontal and temporal lobes redemonstrated. There are focal and confluent are as of T2 hyperintensity throughout the superficial deep and periventricular white matter bilaterally redemonstrated. Midline structures demonstrate normal morphology. The craniocervical junction appears within normal limits. Normal vascular flow voids are present. Dominant left vertebral artery is incidentally noted. The visualized sinuses are clear and the globes are intact. Fluid signal fills bilateral mastoid air cells with extension into the middle ear ossicles on the left seen better on CT coronal image 36. IMPRESSION: 1. No evidence of a recent infarct. 2. Background [id number] diffuse cerebral atrophy most prominent over the bilateral frontal and temporal lobes with advanced chronic small vessel ischemic changes. 3. Possible bilateral mastoiditis, correlate clinically. Possible left-sided cholesteatoma or middle ear infection, correlate clinically.
[2019-05-17 11:39] VITALS: BP 120/73; PULSE 71; TEMP 97.9
--- NOTE | 2019-05-17 12:00 | ECHOF ---
Referral Reason:CVA, chest pain, dizziness MEASUREMENTS -------- HEIGHT: 154.9 cm WEIGHT: 57.2 kg BP: 159/88 RVIDd: 3.0 cm (< 3.3) IVSd: 1.0 cm (0.6 - 1.1) LVIDd: 4.0 cm (3.9 - 5.3) LVPWd: 1.2 cm (0.6 - 1.1) IVSs: 1.8 cm LVIDs: 1.9 cm LVPWs: 2.0 cm LAESV Index (A-L): 25.48 ml/m Ao Diam: 4.0 cm (2.0 - 3.7) AV Cusp: 2.1 cm (1.5 - 2.6) LA Diam: 2.9 cm (2.7 - 3.8) MV EXCURSION: 6.941 mm (> 18.000) MV EF SLOPE: 56 mm/s (70 - 150) EPSS: 1.6 cm MV E Abdirizak: 0.46 m/s MV DecT: 163 ms MV A Abdirizak: 0.97 m/s MV E/A Ratio: 0.48 AR PHT: 620 ms RAP: 5.00 mmHg RVSP: 20.28 mmHg FINDINGS -------- Sinus rhythm. This was a technically good study. The left ventricular size is normal. There is mild concentric left ventricular hypertrophy. Overa ll left ventricular systolic function is low-normal with, an EF between 50 - 55 %. The diastolic fi lling pattern is normal for the age of the patient 11.40. The right ventricle is normal in size. The left atrial size is normal. Normal LA size by volume 22+/-6 ml/m2. The right atrial size is normal. The aortic valve is trileaflet and appears structurally normal. There is [id number] aortic re gurgitation. The mitral valve is normal. Mild mitral regurgitation is present. The tricuspid valve appears structurally normal. Mild tricuspid regurgitation present. Right vent ricular systolic pressure is normal at < 35 mmHg. There is no pulmonic regurgitation present. 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 Normal inferior vena cava with normal inspiratory collapse consistent with estimated right atrial pre ssure of 5 mmHg. There is no pericardial effusion. CONCLUSIONS -------- 1. Sinus rhythm. 2. This was a technically good study. 3. The left ventricular size is normal. 4. There is mild concentric left ventricular hypertrophy. 5. Overall left ventricular systolic function is low-normal with, an EF between 50 - 55 %. 6. The diastolic filling pattern is normal for the age of the patient 11.40 7. The right ventricle is normal in size. 8. The left atrial size is normal. 9. Normal LA size by volume 22+/-6 ml/m2. 10. The right atrial size is normal. 11. The aortic valve is trileaflet and appears structurally normal. 12. There is [id number] aortic regurgitation. 13. The mitral valve is normal. 14. Mild mitral regurgitation is present. 15. The tricuspid valve appears structurally normal. 16. Mild tricuspid regurgitation present. 17. Right ventricular systolic pressure is normal at < 35 mmHg. 18. There is no pulmonic regurgitation present. 19. 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 Normal inferior vena cava with normal inspiratory collapse consistent with estimated right atrial pressure of 5 mmHg. 21. There is no pericardial effusion. EMAIL CAMPAIGN SPECIALIST: April Don RDCS
[2019-05-17 12:16] LABS: Folate, Serum 14.2 ng/mL
--- NOTE | 2019-05-17 12:44 | P.PN ---
Progress Note - Text Progress Note Date: 05/17/19 SUBJECTIVE/INTERVAL EVENTS: Daughter states that patient doesn't remember much that happened last night. She had an episode of diarrhea, and patient herself tried to clean herself. Daughter would like to take her home as soon as possible to get her oriented. PHYSICAL EXAMINATION: VITAL SIGNS: T 98 HR 78 RR 20 BP 98/67 O2 sat 97% on RA GEN.: NAD, pleasant and cooperative HEENT: NCAT, sclera without icterus NECK: Supple SKIN AND EXTREMITIES: Warm to touch, no edema NEURO: MENTAL STATUS: Patient alert and oriented to self, place, time. Able to name the current president. Speech fluent, able to name and repeat, following all commands readily. No right and left disorientation, neglect. CRANIAL NERVES II THROUGH XII: II: Pupils are equal and reactive to light symmetrically. No afferent pupillary defect. Visual octo are intact. III, IV, : No ptosis. Extraocular movements full. No nystagmus. V: Facial sensation intact from V1-3. VII. No clear facial asymmetry. VIII: Hearing intact to finger rub bilaterally. IX, X: Symmetric palate elevation. XI: Shoulder shrug intact. XII: Tongue midline without fasciculation or atrophy. MOTOR: Normal bulk/tone. No pronator drift or tremor. Strength is 5/5 throughout all 4 extremities. SENSORY: Intact to light touch in all 4 extremities. Romberg is negative. REFLEXES: 2+ throughout. Toes are downgoing. COORDINATION: Finger to nose intact. No dysmetria. GAIT: Narrow-based and stable. Difficulty with walking on her toes due to pain on her R knee. Able to heel/tandem walk DIAGNOSTIC TESTING: LABORATORY: WBC 4.5 Hgb 14.0 Platelet 211 Na 130 K 4.0 Cl 90 CO2 28 BUN 15 Cr 0.74 Glucose 124 AST 26 ALT 22 AlkPhos 59 Toponin <0.012 TSH 0.894 ammonia <9 Urinalysis negative utox negative IMAGING: CT Head w/o contrast 05/15/19: Cerebral atrophy and chronic small vessel ischemia. No acute intracranial abnormality. EEG 05/16/19: Normal ASSESSMENT: 79 year-old woman with PMhx of diabetes, HTN, HLD, shingles, presented to [facility] for worsening mental status. Patient with no focal deficits. Patient likely with dementia as patient has been having issues with her mental status for >1 year. Patient's daughter reported a step-down like changes in patient's mental status since about 1 year ago with no stroke-like events. Patient will get work-up for dementia as outpatient, but will obtain MRI brain w/o contrast while patient is admitted to the hospital. Patient's BP has been elevated, staying one more night for better BP management. MRI brain w/o contrast showing diffuse microvascular ischemic changes. No acute or old stroke. RECOMMENDATIONS: 1. Donepezil 5mg qday 2. Neurology outpatient follow-up within 3-4 weeks of discharge.
--- NOTE | 2019-05-17 17:12 | P.DS ---
Providers Date of admission: 05/15/19 20:55 Expected date of discharge: 05/17/19 Attending physician: Soniya Andrade MD Consults: 05/15/19 20:56 Consult Physician Urgent Consulting Provider: Joi Tubbs Consult Reason/Comments: acute mental status changes Do you want consulting provider notified?: Yes Primary care physician: Physician Nonstaff Hospital Course: Discharge Diagnosis: Probable dementia Low cortisol level Hypertensive urgency Hyponatremia, mild Chest pain, resolved when I was the patient Thorasic aortic aneurysm 4 cm. Hospital Course: Patient is a 79-year-old German female with a past medical history of hypertension, recurrent urinary tract infections, and episodic memory loss who presented to the emergency department with worsening confusion. In the ER she underwent an extensive evaluation. She is found be hypertensive on arrival with a blood pressure of 176/83 but her vital signs were otherwise within normal limits. Laboratory analysis showed mild hyponatremia with a sodium of 130, glucose 124, urinalysis negative, ammonia normal, and TSH normal. CT head showed cerebral atrophy and small vessel ischemia. 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 Chest x-ray showed no active cardiopulmonary disease. She was also having some vague chest discomfort symptoms which resolved with nitro. She was admitted for further monitoring. Neurology was consulted. She underwent mocha testing where she scored a 5/30. she seen by neurology who felt this was most consistent with dementia. Her TSH was normal, B12 normal, and syphilis testing was negative. She was found to have a low cortisol level which did not fit with her intermittent hypertension. On the evening of 05/16 she is to be discharged home on her blood pressure spike to 190s systolic and she developed a headache. She was given 1 additional dose of her Cozaar. Her blood pressure responded appropriately. She was found have a low cortisol level. She underwent an MRI of the brain which did not show any evidence of acute or prior cerebrovascular accident. She underwent an echocardiogram which did show dilation of the aortic root of 4 cm, patient has a known history of a thoracic aortic aneurysm. She is new to the area and will need to follow-up with PCP. She's been referred to Dr. Martinez, and will see his nurse practitioner Bobbi Bojorquez for further testing. she is also been referred to Dr. Olmos for further neurological evaluation formalized outpatient dementia testing. I've recommended that she get an ACTH stim test completed. Daughter prefers to do this as outpatient and the patient is becoming more agitated with being in the acute hospital stay. I also recommended a CT thoracic aorta to assess for possible ascending aortic aneurysm, this can also be done as an outpatient. She was subsequently discharged in stable condition. I did order Aricept for discharge and a small Rx of as needed Xanax to see if that will help with the patient episodes of anxiety and agitation. Recommend outpatient formal testing for cognitive. Also discussed with daughter need for supervised living, patient is currently at [facility]. Patient seen and examined at bedside. States that she is feeling well. No complaints. States that she is healthy. Long discussion had with the patients daughter that this is likely dementia. Daughter still feels something else is going on. Asked to complete outpatient testing for Adrenal insufficiency and thorasic aortic aneurysm. Vital signs reviewed and stable. General: non toxic, no distress, appears at stated age Derm: warm, dry Head: atraumatic, normocephalic, symmetric Eyes: EOMI, no lid lag, anicteric sclera Mouth: no lip lesion, mucus membranes moist Cardiovascular: S1S2 reg, no murmur, positive posterior tibial pulse bilateral, Lungs: CTA bilateral, no rhonchi, no rales , no accessory muscle use Abdominal: soft, nontender to palpation, no guarding, no appreciable organomegaly Ext: no gross muscle atrophy, no edema, no contractures Neuro: CN II-XI grossly intact, no focal neuro deficits Psych: Alert, oriented to self, not place, anxious A total of 35 minutes of time were spent preparing this complex discharge summary . Patient Condition at Discharge: Stable Plan - Discharge Summary Discharge Rx Participant: No New Discharge Prescriptions: New Donepezil [Aricept] 5 mg PO HS #30 tab Losartan Potassium [Cozaar] 100 mg PO DAILY #30 tab ALPRAZolam [Xanax] 0.25 mg PO BID PRN 7 Days #15 tab PRN Reason: Anxiety Continue Aspirin EC [Ecotrin Low Dose] 81 mg PO DAILY Discontinued Losartan Potassium 50 mg PO DAILY Discharge Medication List Aspirin EC [Ecotrin Low Dose] 81 mg PO DAILY 05/15/19 [History] ALPRAZolam [Xanax] 0.25 mg PO BID PRN 7 Days #15 tab 05/17/19 [Rx] Donepezil [Aricept] 5 mg PO HS #30 tab 05/17/19 [Rx] Losartan Potassium [Cozaar] 100 mg PO DAILY #30 tab 05/17/19 [Rx] Follow up Appointment(s)/Referral(s): Bobbi Bojorquez NPC [Nurse Practitioner] - 05/23/19 1:30 pm (Primary Care Wednesday Please arrive 15mins early and bring photo ID and insurance information. Paperwork will need to be filled out) Mehrdad Olmos DO [STAFF PHYSICIAN] - 3 Weeks (Spoke to model maker apprentice. Office will call with appointment time) Patient Instructions/Handouts: Dementia (GEN) Activity/Diet/Wound Care/Special Instructions: Activity: As tolerated Diet: Regular Special Instructions: ACTH stim test Discharge Disposition: HOME SELF-CARE
== END 2019-05-17 14:22 | disposition home or self-care (01) ==
LOC: EC 18:26 → 3SCARD 20:55
PROVIDERS: ADMIT Internal Medicine; ATTEND Internal Medicine
DX: G93.40 Encephalopathy, unspecified (principal); R07.89 Other chest pain; I16.0 Hypertensive urgency; E87.1 Hypo-osmolality and hyponatremia; I71.9 Aortic aneurysm of unspecified site, without rupture; E11.9 Type 2 diabetes mellitus without complications; E78.5 Hyperlipidemia, unspecified; F41.9 Anxiety disorder, unspecified; H91.90 Unspecified hearing loss, unspecified ear; I10 Essential (primary) hypertension; Z79.82 Long term (current) use of aspirin; Z85.828 Personal history of other malignant neoplasm of skin; Z87.440 Personal history of urinary (tract) infections; Z91.410 Personal history of adult physical and sexual abuse; Z96.659 Presence of unspecified artificial knee joint; R51 Headache
CPT/HCPCS: 99285; 36415; 95819; 93005; 93306; 92523; 82747; 80053; 80048 ×2; 85652; 84443; 82533; 82607; 82140; 82550; 82746; 84484 ×2; 85025; 85027; 85610; 85730; 82272; 81003; 86780; 80306; 83520; 71046; 70450; 70551; G0378 ×3; G0515; G0480; 80329

== ENCOUNTER → 2019-06-05 | Outpatient (CLI) | payer MEDICARE, OTHER ==
--- NOTE | 2019-06-06 09:15 | CT ---
CT CHEST FOR PULMONARY EMBOLISM. EXAMINATION TYPE: CT angio chest DATE OF EXAM: 06/05/2019 INDICATION: chest pain CT DLP: 184.5 mGycm, Automated exposure control for dose reduction was used. CONTRAST: Patient injected with 80cc mL of Isovue 370. COMPARISON: None TECHNIQUE: CT of the chest is performed on a spiral scan at 2 mm thick sections. Study is performed with intravenous contrast timed for evaluation for pulmonary embolism. This will limit additional po rtions of the evaluation. 3-D MIP images reconstructed by the technologist are reviewed on the compu ter in the coronal and sagittal planes. FINDINGS: There is a calcified granuloma at the left apex. An additional granulomas in the anterolateral right upper lung field No mediastinal or hilar adenopathy enlarged by CT criteria is evident. The ascending aorta diameter at the level of the main pulmonary artery is 4.3 cm. The main pulmonary artery diameter at the bifur cation is 3.1 cm. Aorta: Aortic root is a transverse dimension of 4.6 cm. The ascending thoracic aorta at the level of the main pulmonary artery is 4.3 cm. The aortic arch transverse dimension is 3.9 cm. Descending thor acic aorta at the level of the diaphragm measures 2.9 cm. Vascular calcifications within the aorta. Note is made of prominence of the great vessels. Contrast timing is for pulmonary embolism. Aortic di ssection would not be identified on this exam. No acute pulmonary emboli are identified. Limited CT section through the upper abdomen. Vascular calcification is in the renal arteries. Visual ized pancreas is somewhat atrophic. Upper abdomen is otherwise unremarkable. IMPRESSIONS: 1. Diffuse fusiform aneurysmal dilatation or dominantly of the ascending thoracic aorta.
== END | disposition home or self-care (01) ==
LOC: RADCTMAIN 13:31
PROVIDERS: ATTEND Internal Medicine
DX: I71.2 Thoracic aortic aneurysm, without rupture (principal)
CPT/HCPCS: 82565; 84520; 71275; 36415; Q9967

== ENCOUNTER → 2019-06-28 | Outpatient (CLI) | payer MEDICARE, OTHER ==
[~2019-06-28] MED LIST: COSYNTROPIN 0.25 MG VIAL IVP NR; SODIUM CHLORIDE 0.9% 500 ML 500 ML in EMPTY BAG 1 BAG IV PRN
== END | disposition home or self-care (01) ==
LOC: PROCWHC3 08:27
PROVIDERS: ATTEND Nurse Practitioner Adult Health
DX: E27.40 Unspecified adrenocortical insufficiency (principal)
CPT/HCPCS: 82533; 82024; 96374; 36415; J0834

== ENCOUNTER 2020-04-01 14:05 | Emergency (ER) | payer MEDICARE, OTHER ==
[2020-04-01 14:13] VITALS: TEMP 97.9
[2020-04-01] MEDS ORDERED: SODIUM CHLORIDE 0.9% 500 ML 500 ML IV STA (14:34)
[2020-04-01] MEDS ORDERED: MORPHINE SULFATE 4 MG/ML SYRINGE IV STA (14:35)
[2020-04-01] MEDS ORDERED: ONDANSETRON 4 MG/2 ML VIAL IVP STA (14:35)
[2020-04-01 15:14] LABS: Basophils % (A) 1 %; Eosinophils # (A) 0.1 k/uL (0-0.7); Eosinophils % (A) 1 %; HCT 38.1 % (34.0-46.0); HGB 12.3 gm/dL (11.4-16.0); Lymphocytes # (A) 1.3 k/uL (1.0-4.8); Lymphocytes % (A) 22 %; MCH 32.7 pg (25.0-35.0); MCHC 32.2 g/dL (31.0-37.0); MCV 101.3 fL (80.0-100.0); Mean Platelet Volume 7.4; Monocytes # (A) 0.5 k/uL (0-1.0); Monocytes % (A) 8 %; Neutrophils % (A) 67 %; Platelet Count 202 k/uL (150-450); RBC 3.76 m/uL (3.80-5.40); RDW 12.4 % (11.5-15.5)
[2020-04-01 15:20] LABS: Albumin 4.2 g/dL (3.5-5.0); Calcium 9.6 mg/dL (8.4-10.2); Potassium 4.6 mmol/L (3.5-5.1); Total Bilirubin 0.9 mg/dL (0.2-1.3); Total Protein 7.9 g/dL (6.3-8.2)
--- NOTE | 2020-04-01 16:28 | CT ---
EXAMINATION TYPE: CT abdomen pelvis w con DATE OF EXAM: 04/01/2020 COMPARISON: CTA chest 06/05/2019 HISTORY: Generalized pain. CT DLP: 695.3 mGycm Automated exposure control for dose reduction was used. TECHNIQUE: Helical acquisition of images was performed from the lung bases through the pelvis. CONTRAST: Performed without Oral Contrast and with IV Contrast, patient injected with 100 mL of Isovue 300. FINDINGS: LUNG BASES: Mild bibasilar atelectasis. Calcified granulomas of the bilateral lungs. Trace right pleu ral effusion. Cardiomegaly. Calcific coronary artery disease. No pericardial effusion. Incompletely v isualized ascending thoracic aortic aneurysm measuring up to 4.6 cm. LIVER: Normal. BILIARY SYSTEM: No intrahepatic or extrahepatic biliary ductal dilatation. Gallbladder contracted. PANCREAS: Atrophic. SPLEEN: Normal. ADRENALS: Normal. KIDNEYS: Too small to characterize hypodense lesions bilaterally. No hydronephrosis or hydroureter. BOWEL: No obstruction or thickening. Normal appendix. PERITONEUM: No pneumoperitoneum. No free fluid. LYMPH NODES: No lymphadenopathy. PELVIS: There is distended urinary bladder. There is a left adnexal fluid cystic lesion measuring 2.1 x 3.3 x 2.8 cm (201:69, 203:70). Uterus and right adnexa normal. VASCULATURE: No abdominal aortic aneurysm. There is infrarenal abdominal aortic ectasia measuring up to 2.1 cm. Moderate atherosclerotic disease. There are mildly prominent prominent left pelvic blood vessels and left gonadal vein. There is narrowing of the left renal vein as it passes anteriorly to t he aorta, however with preserved fat plane between the left renal vein and the superior mesenteric ar bruce (203:64, 201:36). MUSCULOSKELETAL: Degenerative changes of the spine. There is spinal stenosis at L3-L4, and L4-L5. De creased osseous mineralization. IMPRESSION: 1. Left adnexal 3.3 cm cystic lesion. Recommend outpatient dedicated pelvic ultrasound for further c haracterization. 2. Prominent left pelvic veins. Correlate clinically for possible pelvic congestion syndrome. 3. Ascending thoracic aortic aneurysm measuring up to 4.6 cm, incompletely visualized, and appears s imilar to 06/05/2019 CTA comparison. 4. Additional nonacute findings as above.
[2020-04-01] MEDS ORDERED: HYDROcodone/APAP 5-325MG 1 EACH TAB PO STA (16:38)
--- NOTE | 2020-04-01 16:40 | ED ---
Fall HPI - General Chief Complaint: Fall Stated Complaint: FALL Time Seen by Provider: 04/01/20 14:28 Source: patient, family Mode of arrival: wheelchair Limitations: no limitations - History of Present Illness Initial Comments: This a 80-year-old female presents emergency Department chief complaint of right-sided pain. Patient fell a few days ago the pain has been steadily increasing. Patient's had no noted hematuria no head injury no loss conscious patient went a right-sided rib, lower abdominal pain. No diarrhea no constipation no bowel bladder incontinence or retention. Patient no noted bruising no blood thinners. - Related Data Home Medications Medication Instructions Recorded Confirmed Aspirin EC [Ecotrin Low Dose] 81 mg PO DAILY 05/15/19 06/28/19 Previous Rx's Medication Instructions Recorded ALPRAZolam [Xanax] 0.25 mg PO BID PRN 7 Days #15 tab 05/17/19 Donepezil [Aricept] 5 mg PO HS #30 tab 05/17/19 Losartan Potassium [Cozaar] 100 mg PO DAILY #30 tab 05/17/19 Allergies Allergy/AdvReac Type Severity Reaction Status Date / Time No Known Allergies Allergy Verified 04/01/20 14:13 Review of Systems ROS Statement: Those systems with pertinent positive or pertinent negative responses have been documented in the HPI. ROS Other: All systems not noted in ROS Statement are negative. Past Medical History Past Medical History: Diabetes Mellitus, Hyperlipidemia, Hypertension History of Any Multi-Drug Resistant Organisms: None Reported Additional Past Surgical History / Comment(s): skin cancer removal Past Anesthesia/Blood Transfusion Reactions: No Reported Reaction Past Psychological History: No Psychological Hx Reported Smoking Status: Never smoker Past Alcohol Use History: None Reported Past Drug Use History: None Reported - Past Family History Family Family Medical History: No Reported History General Exam Limitations: altered mental status, physical limitation General appearance: alert, in no apparent distress Neck exam: Present: normal inspection. Absent: tenderness, meningismus, lymphadenopathy Respiratory exam: Present: normal lung sounds bilaterally, chest wall tenderness (Right anterior to lateral lower ribs). Absent: respiratory distress, wheezes, rales, rhonchi, stridor Cardiovascular Exam: Present: regular rate, normal rhythm, normal heart sounds. Absent: systolic murmur, diastolic murmur, rubs, gallop, clicks GI/Abdominal exam: Present: soft, tenderness (Mild right-sided), normal bowel sounds. Absent: distended, guarding, rebound, rigid Back exam: Present: full ROM. Absent: tenderness, CVA tenderness (R), CVA tenderness (L), paraspinal tenderness, vertebral tenderness Neurological exam: Present: alert, oriented X3 Skin exam: Present: warm, dry, intact, normal color. Absent: rash Course Vital Signs 04/01/20 14:08 Temperature 97.9 F Pulse Rate 102 H Respiratory 20 Rate Blood Pressure 110/75 O2 Sat by Pulse 96 Oximetry Medical Decision Making - Medical Decision Making CT does not reveal any acute is there are noted aortic aneurysm which is known the patient. Patient urinalysis and labs unremarkable. Patient be discharged in stable condition. - Lab Data Result diagrams: 04/01/20 14:50 04/01/20 14:50 Lab Results 04/01/20 04/01/20 04/01/20 Range/Units 14:50 14:50 14:50 WBC 6.0 (3.8-10.6) k/uL RBC 3.76 L (3.80-5.40) m/uL Hgb 12.3 (11.4-16.0) gm/dL Hct 38.1 (34.0-46.0) % MCV 101.3 H (80.0-100.0) fL MCH 32.7 (25.0-35.0) pg MCHC 32.2 (31.0-37.0) g/dL RDW 12.4 (11.5-15.5) % Plt Count 202 (150-450) k/uL Neutrophils % 67 % Lymphocytes % 22 % Monocytes % 8 % Eosinophils % 1 % Basophils % 1 % Neutrophils # 4.0 (1.3-7.7) k/uL Lymphocytes # 1.3 (1.0-4.8) k/uL Monocytes # 0.5 (0-1.0) k/uL Eosinophils # 0.1 (0-0.7) k/uL Basophils # 0.0 (0-0.2) k/uL Sodium 135 L (137-145) mmol/L Potassium 4.6 (3.5-5.1) mmol/L Chloride 101 (98-107) mmol/L Carbon Dioxide 23 (22-30) mmol/L Anion Gap 11 mmol/L BUN 18 H (7-17) mg/dL Creatinine 0.79 (0.52-1.04) mg/dL Est GFR (CKD-EPI)AfAm 83 (>60 ml/min/1.73 sqM) Est GFR (CKD-EPI)NonAf 72 (>60 ml/min/1.73 sqM) Glucose 216 H (74-99) mg/dL Calcium 9.6 (8.4-10.2) mg/dL Total Bilirubin 0.9 (0.2-1.3) mg/dL AST 28 (14-36) U/L ALT 10 (4-34) U/L Alkaline Phosphatase 50 (38-126) U/L Total Protein 7.9 (6.3-8.2) g/dL Albumin 4.2 (3.5-5.0) g/dL Amylase 32 (30-110) U/L Lipase 26 (23-300) U/L Urine Color Yellow Urine Appearance Clear (Clear) Urine pH 7.0 (5.0-8.0) Ur Specific [place] 1.023 (1.001-1.035) Urine Protein Negative (Negative) Urine Glucose (UA) Trace H (Negative) Urine Ketones Negative (Negative) Urine Blood Negative (Negative) Urine Nitrite Negative (Negative) Urine Bilirubin Negative (Negative) Urine Urobilinogen <2.0 (<2.0) mg/dL Ur Leukocyte Esterase Trace H (Negative) Urine RBC 1 (0-5) /hpf Urine WBC 2 (0-5) /hpf Ur Squamous Epith Cells 1 (0-4) /hpf Urine Bacteria Rare H (None) /hpf Hyaline Casts 1 (0-2) /lpf Urine Mucus Rare H (None) /hpf Disposition Clinical Impression: Fall, Rib contusion Disposition: HOME SELF-CARE Condition: Stable Instructions (If sedation given, give patient instructions): Rib Contusion (ED) Additional Instructions: Please return to the Emergency Department if symptoms worsen or any other concerns. Is patient prescribed a controlled substance at d/c from ED?: No Referrals: Bobbi Bojorquez NPC [Primary Care Provider] - 1-2 days Time of Disposition: 17:21
[2020-04-01 17:02] LABS: Appearance,Urine Clear (Clear); Bacteria,Urine Rare /hpf; Bilirubin,Urine Negative (Negative); Blood,Urine Negative (Negative); Color,Urine Yellow; Glucose,Urine (UA) Trace (Negative); Hyaline Casts,Urine 1 /lpf (0-2); Ketones,Urine Negative (Negative); Leukocyte Esterase,Urine Trace (Negative); Mucus,Urine Rare /hpf; Nitrite,Urine Negative (Negative); Protein,Urine Negative (Negative); RBC,Urine 1 /hpf (0-5); Specific Gravity,Urine 1.023 (1.001-1.035); Squamous Epithelial Cell,Urine 1 /hpf (0-4); Urobilinogen,Urine <2.0 mg/dL (<2.0); WBC,Urine 2 /hpf (0-5)
[2020-04-01] MEDS ORDERED: ACET/COD 300 MG/30 MG STARTER PACK 6 TAB BTL PO STA (17:22)
[2020-04-01 17:37] VITALS: BP 117/65; PULSE 65; RESP 18
== END 2020-04-01 17:31 | disposition home or self-care (01) ==
LOC: EC 14:05
DX: S20.219A Contusion of unspecified front wall of thorax, initial encounter (principal); W18.30XA Fall on same level, unspecified, initial encounter; Y92.009 Unspecified place in unspecified non-institutional (private) residence as the place of occurrence of the external cause
CPT/HCPCS: 36415; 80053; 82150; 83690; 85025; 81001; 74177; 99284; 96374; 96375; 96361 ×2; J2270; J2405; Q9967

== ENCOUNTER 2021-08-21 19:35 | Emergency (ER) | payer MEDICARE, OTHER ==
[2021-08-21 19:55] VITALS: BP 153/88; PULSE 88; RESP 16; TEMP 98.5
[2021-08-21] MEDS ORDERED: SODIUM CHLORIDE 0.9% 1,000 ML IV STA (20:00)
--- NOTE | 2021-08-21 20:24 | ED ---
Altered Mental Status HPI - General Chief Complaint: Altered Mental Status Stated Complaint: Dementia Time Seen by Provider: 08/21/21 19:50 Source: family, EMS, RN notes reviewed, old records reviewed Mode of arrival: EMS Limitations: altered mental status - History of Present Illness Initial Comments: 81-year-old female history of vascular dementia which is progressive apparently is a new facility for about 36 hours now and she attempted to walk away to go back to her daughter's house. Her that she was at another facility. She apparently did well earlier in the day she apparently has become somewhat combative. She was refusing to take her medication. No reports of fevers chills nausea vomiting sweats was also learned the patient does have a history of bipolar disorder. Also adrenal cortical insufficiency. No reports of trauma falls or other symptoms or complaints at this time per the patient's daughter she had been on some medications with adjustments that were needed when necessary She was living with her and apparently there is no worse such as this in the current facility. MD Complaint: altered mental status, confusion, other - Related Data Home Medications Medication Instructions Recorded Confirmed Aspirin EC [Ecotrin Low Dose] 81 mg PO DAILY 05/15/19 06/28/19 Previous Rx's Medication Instructions Recorded ALPRAZolam [Xanax] 0.25 mg PO BID PRN 7 Days #15 tab 05/17/19 Donepezil [Aricept] 5 mg PO HS #30 tab 05/17/19 Losartan Potassium [Cozaar] 100 mg PO DAILY #30 tab 05/17/19 Allergies Allergy/AdvReac Type Severity Reaction Status Date / Time No Known Allergies Allergy Verified 04/01/20 14:13 Review of Systems ROS Statement: Those systems with pertinent positive or pertinent negative responses have been documented in the HPI. ROS Other: All systems not noted in ROS Statement are negative. Past Medical History Past Medical History: Dementia, Diabetes Mellitus, Hyperlipidemia, Hypertension History of Any Multi-Drug Resistant Organisms: None Reported Additional Past Surgical History / Comment(s): skin cancer removal Past Anesthesia/Blood Transfusion Reactions: No Reported Reaction Past Psychological History: No Psychological Hx Reported Smoking Status: Never smoker Past Alcohol Use History: None Reported Past Drug Use History: None Reported - Past Family History Family Family Medical History: No Reported History General Exam - General Exam Comments Initial Comments: This is a well-developed asthenic appearing female who is awake alert but demonstrating cognitive decline Limitations: altered mental status General appearance: alert, in no apparent distress Head exam: Present: atraumatic, normocephalic, normal inspection Eye exam: Present: normal appearance, PERRL, EOMI. Absent: scleral icterus, conjunctival injection, periorbital swelling ENT exam: Present: normal exam, mucous membranes moist Neck exam: Present: normal inspection, full ROM, other (No stridor JVD or bruits). Absent: tenderness, meningismus, lymphadenopathy Respiratory exam: Present: normal lung sounds bilaterally. Absent: respiratory distress, wheezes, rales, rhonchi, stridor Cardiovascular Exam: Present: regular rate, normal rhythm, normal heart sounds. Absent: systolic murmur, diastolic murmur, rubs, gallop, clicks GI/Abdominal exam: Present: soft, normal bowel sounds. Absent: distended, tenderness, guarding, rebound, rigid Extremities exam: Present: normal inspection, full ROM, normal capillary refill. Absent: tenderness, pedal edema, joint swelling, calf tenderness Back exam: Present: normal inspection Neurological exam: Present: alert, altered, CN II-XII intact Psychiatric exam: Present: normal affect, normal mood Skin exam: Present: warm, dry, intact, normal color. Absent: rash Course Vital Signs 08/21/21 19:49 Temperature 98.5 F Pulse Rate 88 Respiratory 16 Rate Blood Pressure 153/88 O2 Sat by Pulse 98 Oximetry Medical Decision Making - Medical Decision Making I did discuss findings with patient family code this is pending patient is family like to take the patient home a one-week supply be sure medication was given until he can follow-up with Dr. Olmos and Dr. George - Lab Data Result diagrams: 08/21/21 20:50 08/21/21 20:50 Lab Results 08/21/21 08/21/21 08/21/21 Range/Units 20:50 20:50 20:50 WBC 5.9 (3.8-10.6) k/uL RBC 3.90 (3.80-5.40) m/uL Hgb 12.9 (11.4-16.0) gm/dL Hct 37.5 (34.0-46.0) % MCV 96.3 (80.0-100.0) fL MCH 33.0 (25.0-35.0) pg MCHC 34.3 (31.0-37.0) g/dL RDW 11.9 (11.5-15.5) % Plt Count 237 (150-450) k/uL MPV 7.2 Neutrophils % 52 % Lymphocytes % 39 % Monocytes % 5 % Eosinophils % 2 % Basophils % 1 % Neutrophils # 3.1 (1.3-7.7) k/uL Lymphocytes # 2.3 (1.0-4.8) k/uL Monocytes # 0.3 (0-1.0) k/uL Eosinophils # 0.1 (0-0.7) k/uL Basophils # 0.1 (0-0.2) k/uL PT 10.2 (9.0-12.0) sec INR 0.9 (<1.2) APTT 23.8 (22.0-30.0) sec Sodium (137-145) mmol/L Potassium (3.5-5.1) mmol/L Chloride (98-107) mmol/L Carbon Dioxide (22-30) mmol/L Anion Gap mmol/L BUN (7-17) mg/dL Creatinine (0.52-1.04) mg/dL Est GFR (CKD-EPI)AfAm (>60 ml/min/1.73 sqM) Est GFR (CKD-EPI)NonAf (>60 ml/min/1.73 sqM) Glucose (74-99) mg/dL Calcium (8.4-10.2) mg/dL Magnesium (1.6-2.3) mg/dL Total Bilirubin (0.2-1.3) mg/dL AST (14-36) U/L ALT (4-34) U/L Alkaline Phosphatase (38-126) U/L Ammonia (<30) umol/L Creatine Kinase (30-135) U/L Troponin I (0.000-0.034) ng/mL Total Protein (6.3-8.2) g/dL Albumin (3.5-5.0) g/dL Lipase (23-300) U/L Urine Color Light Yellow Urine Appearance Clear (Clear) Urine pH 7.0 (5.0-8.0) Ur Specific [place] 1.005 (1.001-1.035) Urine Protein Negative (Negative) Urine Glucose (UA) Negative (Negative) Urine Ketones Negative (Negative) Urine Blood Negative (Negative) Urine Nitrite Negative (Negative) Urine Bilirubin Negative (Negative) Urine Urobilinogen <2.0 (<2.0) mg/dL Ur Leukocyte Esterase Trace H (Negative) Urine RBC <1 (0-5) /hpf Urine WBC 3 (0-5) /hpf Ur Squamous Epith Cells <1 (0-4) /hpf Urine Bacteria Occasional H (None) /hpf Urine Mucus Rare H (None) /hpf Urine Opiates Screen Not Detected (NotDetected) Ur Oxycodone Screen Not Detected (NotDetected) Urine Methadone Screen Not Detected (NotDetected) Ur Propoxyphene Screen Not Detected (NotDetected) Ur Barbiturates Screen Not Detected (NotDetected) U Tricyclic Antidepress Not Detected (NotDetected) Ur Phencyclidine Scrn Not Detected (NotDetected) Ur Amphetamines Screen Not Detected (NotDetected) U Methamphetamines Scrn Not Detected (NotDetected) U Benzodiazepines Scrn Not Detected (NotDetected) Urine Cocaine Screen Not Detected (NotDetected) U Marijuana (THC) Screen Not Detected (NotDetected) Serum Alcohol mg/dL 08/21/21 08/21/21 08/21/21 Range/Units 20:50 20:50 20:50 WBC (3.8-10.6) k/uL RBC (3.80-5.40) m/uL Hgb (11.4-16.0) gm/dL Hct (34.0-46.0) % MCV (80.0-100.0) fL MCH (25.0-35.0) pg MCHC (31.0-37.0) g/dL RDW (11.5-15.5) % Plt Count (150-450) k/uL MPV Neutrophils % % Lymphocytes % % Monocytes % % Eosinophils % % Basophils % % Neutrophils # (1.3-7.7) k/uL Lymphocytes # (1.0-4.8) k/uL Monocytes # (0-1.0) k/uL Eosinophils # (0-0.7) k/uL Basophils # (0-0.2) k/uL PT (9.0-12.0) sec INR (<1.2) APTT (22.0-30.0) sec Sodium 132 L (137-145) mmol/L Potassium 4.0 (3.5-5.1) mmol/L Chloride 98 (98-107) mmol/L Carbon Dioxide 24 (22-30) mmol/L Anion Gap 10 mmol/L BUN 11 (7-17) mg/dL Creatinine 0.80 (0.52-1.04) mg/dL Est GFR (CKD-EPI)AfAm 81 (>60 ml/min/1.73 sqM) Est GFR (CKD-EPI)NonAf 70 (>60 ml/min/1.73 sqM) Glucose 116 H (74-99) mg/dL Calcium 9.2 (8.4-10.2) mg/dL Magnesium 2.0 (1.6-2.3) mg/dL Total Bilirubin 0.6 (0.2-1.3) mg/dL AST 25 (14-36) U/L ALT 15 (4-34) U/L Alkaline Phosphatase 66 (38-126) U/L Ammonia <9 (<30) umol/L Creatine Kinase 83 (30-135) U/L Troponin I <0.012 (0.000-0.034) ng/mL Total Protein 8.2 (6.3-8.2) g/dL Albumin 4.7 (3.5-5.0) g/dL Lipase 65 (23-300) U/L Urine Color Urine Appearance (Clear) Urine pH (5.0-8.0) Ur Specific [place] (1.001-1.035) Urine Protein (Negative) Urine Glucose (UA) (Negative) Urine Ketones (Negative) Urine Blood (Negative) Urine Nitrite (Negative) Urine Bilirubin (Negative) Urine Urobilinogen (<2.0) mg/dL Ur Leukocyte Esterase (Negative) Urine RBC (0-5) /hpf Urine WBC (0-5) /hpf Ur Squamous Epith Cells (0-4) /hpf Urine Bacteria (None) /hpf Urine Mucus (None) /hpf Urine Opiates Screen (NotDetected) Ur Oxycodone Screen (NotDetected) Urine Methadone Screen (NotDetected) Ur Propoxyphene Screen (NotDetected) Ur Barbiturates Screen (NotDetected) U Tricyclic Antidepress (NotDetected) Ur Phencyclidine Scrn (NotDetected) Ur Amphetamines Screen (NotDetected) U Methamphetamines Scrn (NotDetected) U Benzodiazepines Scrn (NotDetected) Urine Cocaine Screen (NotDetected) U Marijuana (THC) Screen (NotDetected) Serum Alcohol <10 mg/dL - EKG Data -: EKG Interpreted by Me EKG Comments: Sinus rhythm of 89 MS interval 233 QRS duration 108 QT since QTC 370/[address]-T wave changes left exodeviation and pattern consistent with pulmonary disease. - Radiology Data Radiology results: report reviewed (Image reviewed no acute findings evidence of thoracic aortic abnormality seen on prior films), image reviewed Disposition Clinical Impression: Dementia Disposition: HOME SELF-CARE Condition: Good Instructions (If sedation given, give patient instructions): Dementia (ED) Is patient prescribed a controlled substance at d/c from ED?: No Referrals: Cosme George MD [Primary Care Provider] - 1-2 days
[2021-08-21 21:02] LABS: Basophils # (A) 0.1 k/uL (0-0.2); Basophils % (A) 1 %; Eosinophils # (A) 0.1 k/uL (0-0.7); Eosinophils % (A) 2 %; HCT 37.5 % (34.0-46.0); HGB 12.9 gm/dL (11.4-16.0); Lymphocytes # (A) 2.3 k/uL (1.0-4.8); Lymphocytes % (A) 39 %; MCHC 34.3 g/dL (31.0-37.0); MCV 96.3 fL (80.0-100.0); Mean Platelet Volume 7.2; Monocytes # (A) 0.3 k/uL (0-1.0); Monocytes % (A) 5 %; Neutrophils # (A) 3.1 k/uL (1.3-7.7); Neutrophils % (A) 52 %; Platelet Count 237 k/uL (150-450); RDW 11.9 % (11.5-15.5); WBC 5.9 k/uL (3.8-10.6)
[2021-08-21 21:04] LABS: Appearance,Urine Clear (Clear); Bacteria,Urine Occasional /hpf; Bilirubin,Urine Negative (Negative); Blood,Urine Negative (Negative); Color,Urine Light Yellow; Glucose,Urine (UA) Negative (Negative); Ketones,Urine Negative (Negative); Leukocyte Esterase,Urine Trace (Negative); Mucus,Urine Rare /hpf; Nitrite,Urine Negative (Negative); Protein,Urine Negative (Negative); RBC,Urine <1 /hpf (0-5); Specific Gravity,Urine 1.005 (1.001-1.035); Squamous Epithelial Cell,Urine <1 /hpf (0-4); Urobilinogen,Urine <2.0 mg/dL (<2.0); WBC,Urine 3 /hpf (0-5)
[2021-08-21 21:10] LABS: INR 0.9 (<1.2); Partial Thromboplastin Time 23.8 sec (22.0-30.0); Prothrombin Time 10.2 sec (9.0-12.0)
[2021-08-21 21:13] LABS: Amphetamine Screen,Urine Not Detected (NotDetected); Barbiturate Screen,Urine Not Detected (NotDetected); Benzodiazepines Screen,Urine Not Detected (NotDetected); Cocaine Screen,Urine Not Detected (NotDetected); Methadone Screen, Urine Not Detected (NotDetected); Opiate Screen,Urine Not Detected (NotDetected); Oxycodone Screen, Urine Not Detected (NotDetected); Phencyclidine Screen,Urine Not Detected (NotDetected); Tricyclic Antidepressant,Urine Not Detected (NotDetected); Urn Cannabinoid Scrn Not Detected (NotDetected)
[2021-08-21 21:20] LABS: ALT 15 U/L (4-34); AST 25 U/L (14-36); African American GFR (CKD) 81 (>60 ml/min/1.73 sqM); Albumin 4.7 g/dL (3.5-5.0); Alcohol <10 mg/dL; Alkaline Phosphatase 66 U/L (38-126); Anion Gap 10 mmol/L; Blood Urea Nitrogen 11 mg/dL (7-17); Calcium 9.2 mg/dL (8.4-10.2); Carbon Dioxide 24 mmol/L (22-30); Chloride 98 mmol/L (98-107); Creatine Kinase 83 U/L (30-135); Glucose 116 mg/dL (74-99); Lipase 65 U/L (23-300); Non-African American GFR(CKD) 70 (>60 ml/min/1.73 sqM); Sodium 132 mmol/L (137-145); Total Bilirubin 0.6 mg/dL (0.2-1.3); Total Protein 8.2 g/dL (6.3-8.2)
--- NOTE | 2021-08-21 21:21 | CT ---
EXAMINATION TYPE: CT brain wo con DATE OF EXAM: 08/21/2021 HISTORY: AMS CT DLP: 1099.4 mGycm. Automated Exposure Control for Dose Reduction was Utilized. TECHNIQUE: CT scan of the head is performed without contrast. COMPARISON: 05/15/19 FINDINGS: There is no acute intracranial hemorrhage or midline shift identified. There is diffuse ve ntricular and sulcal prominence consistent with diffuse age-related cerebral atrophy. There is low-a ttenuation in the periventricular white matter consistent with chronic small vessel ischemic change. The globes are intact and the visualized sinuses are clear. Mastoid sinus air cells are opacified bilaterally, much more on the left. This is unchanged from prio r study. IMPRESSION: No acute intracranial hemorrhage or midline shift.
--- NOTE | 2021-08-21 22:09 | XR ---
EXAMINATION TYPE: XR chest 2V DATE OF EXAM: 08/21/2021 COMPARISON: 05/15/19 HISTORY: AMS TECHNIQUE: AP and lateral views of the chest are obtained. FINDINGS: There is no focal air space opacity, pleural effusion, or pneumothorax seen. The cardiac silhouette size is within normal limits. The osseous structures are intact. IMPRESSION: 1. No acute process. 2. Thoracic aorta ectasia redemonstrated.
== END 2021-08-21 22:30 | disposition home or self-care (01) ==
LOC: EC 19:35
DX: F03.90 Unspecified dementia, unspecified severity, without behavioral disturbance, psychotic disturbance, mood disturbance, and anxiety (principal); E11.9 Type 2 diabetes mellitus without complications; I10 Essential (primary) hypertension; E78.5 Hyperlipidemia, unspecified; Z79.82 Long term (current) use of aspirin; Z79.899 Other long term (current) drug therapy
CPT/HCPCS: 36415; 93005; 80053; 82140; 82550; 83690; 83735; 84484; 85025; 85610; 85730; 81001; 80306; 87635; 71046; 70450; 99285; G0480; 80320

== ENCOUNTER 2023-04-15 06:13 | Day surgery (SDC) | payer MEDICARE, OTHER ==
[2023-04-15] MEDS ORDERED: LACTATED RINGERS 1,000 ML IV ONE (06:39)
[2023-04-15] MEDS ORDERED: LIDOCAINE 1% INJ 10MG/ML (20 ML MDV) ONE (07:00)
[2023-04-15] MEDS ORDERED: PROPOFOL 10 MG/ML 20 ML VIAL IV ONE (07:00)
[2023-04-15] MEDS ORDERED: LIDOCAINE 1% (10MG/ML) FOR IV START SQ ONE (07:03)
[2023-04-15 07:26] VITALS: RESP 16; TEMP 97.3
[2023-04-15 07:59] LABS: Basophils % (A) 1 %; Eosinophils # (A) 0.4 k/uL (0-0.7); Eosinophils % (A) 8 %; HCT 30.8 % (34.0-46.0); HGB 10.4 gm/dL (11.4-16.0); Lymphocytes # (A) 2.6 k/uL (1.0-4.8); Lymphocytes % (A) 58 %; MCH 32.7 pg (25.0-35.0); MCHC 33.9 g/dL (31.0-37.0); MCV 96.5 fL (80.0-100.0); Mean Platelet Volume 8.6; Monocytes # (A) 0.2 k/uL (0-1.0); Monocytes % (A) 6 %; Neutrophils # (A) 1.1 k/uL (1.3-7.7); Neutrophils % (A) 25 %; Platelet Count 174 k/uL (150-450); RBC 3.19 m/uL (3.80-5.40); RDW 12.9 % (11.5-15.5); Reticulocyte % 0.9 % (0.5-2.0); WBC 4.4 k/uL (3.8-10.6)
--- NOTE | 2023-04-15 08:01 | OP ---
OPERATIVE REPORT DATE OF SERVICE : PROCEDURES PERFORMED: Bone marrow biopsy, aspiration, with local and general sedation. DESCRIPTION OF PROCEDURE: After the administration of general anesthesia, Ms. Chan was positioned in the left lateral decubitus position with right posterior superior iliac spine palpated. The skin was prepared with three swabs of Betadine and three swabs of alcohol, followed by placement of sterile drape. 10 mL of 1% lidocaine was then applied to the periosteum. A 0.3 cm incision was then made into the skin and subcutaneous tissue. A 4-inch Jamshidi needle was then advanced into the bone marrow. 16 mL of aspirate was obtained on the first attempt along with a 0.7 cm core biopsy sample obtained in two fragments. There was 1 mL of blood loss. The aspirate and core samples will be sent for flow cytometry, cytogenetics, FISH, and next-generation sequencing. Ms. Chan was returned to the postop area in stable condition. We will follow up on findings in clinic. PREOPERATIVE DIAGNOSIS: Macrocytic anemia. POSTOPERATIVE DIAGNOSIS: Macrocytic anemia. MMODL / IJN: [id number] / MTDNathan
[2023-04-15 08:19] VITALS: BP 115/78; PULSE 51
== END 2023-04-15 09:29 | disposition home or self-care (01) ==
LOC: OR 06:13
PROVIDERS: ATTEND Internal Medicine
DX: D53.9 Nutritional anemia, unspecified (principal); M19.90 Unspecified osteoarthritis, unspecified site; I10 Essential (primary) hypertension; F03.A4 Unspecified dementia, mild, with anxiety; F31.9 Bipolar disorder, unspecified; Z85.828 Personal history of other malignant neoplasm of skin; Z96.651 Presence of right artificial knee joint; Z79.899 Other long term (current) drug therapy; Z80.1 Family history of malignant neoplasm of trachea, bronchus and lung
CPT/HCPCS: 85025; 85045; 38222; J2001; J2704

== ENCOUNTER → 2023-07-22 | Outpatient (CLI) | payer MEDICARE, OTHER ==
--- NOTE | 2023-07-22 12:16 | US ---
EXAMINATION TYPE: US abdomen complete DATE OF EXAM: 07/22/2023 COMPARISON: CT 2019 CLINICAL INDICATION: Female, 83 years old with history of R63.4 WEIGHT LOSS; TECHNIQUE: Multiple sonographic images of the abdomen are obtained. FINDINGS: EXAM MEASUREMENTS: Liver Length: 12.4 cm Gallbladder Wall: 0.2 cm CBD: 0.4 cm Spleen: 9.4 cm Right Kidney: 9.2 x 4.1 x 4.4 cm Left Kidney: 9.2 x 4.3 x 4.5 cm Pancreas: visualized portions wnl, limited by overlying midline bowel gas Liver: scanned intercostally, visualized portions wnl Gallbladder: wnl Evidence for sonographic Sanchez's sign: no CBD: wnl Spleen: wnl Right Kidney: wnl Left Kidney: wnl Upper IVC: wnl Abd Aorta: No aneurysm, however there is mild abscess chronic changes. IMPRESSION: No acute findings within the abdomen.
== END | disposition home or self-care (01) ==
LOC: RADUSWWP 07:39
PROVIDERS: ATTEND Internal Medicine
DX: R63.4 Abnormal weight loss (principal)
CPT/HCPCS: 76700